=== PATIENT | female | born 1970 | race Two or more races ===

== ENCOUNTER → 2024-09-25 | Outpatient (CLI) | payer MEDICAID, SELFPAY ==
--- NOTE | 2024-09-25 09:00 | XR_ITS ---
Examination: MRI lumbar spine without contrast Date and time of exam: September 26, 2023, 0912 hours INDICATIONS: Low back pain radiating down the right leg with numbness in the toes 3 years Technique: Multiple MRI axial and sagittal sections lumbar spine. Sagittal T2-weighted images, TR 3500, TE 118 T1 weighted transverse sections, TR 688 T8.5, T2-weighted sagittal sections T1 weighted sagittal sections TR 621, TE 30 T2 axial sections, TR 4, 190, TE 84. Findings: Minimal anterolisthesis L4 on L5 No lumbar fracture Diffuse lumbar disc desiccation. Moderate disc narrowing L5-S1. L5-S1 4 mm right paracentral subarticular foraminal disc bulge L4-L5 no disc protrusion L3-L4 no disc protrusion L2-L3 no disc protrusion L1-L2 no disc protrusion IMPRESSION: L5-S1 4 mm right paracentral subarticular foraminal disc bulge
== END | disposition home or self-care (01) ==
LOC: SMRI 08:20
PROVIDERS: PCP Physician Assistant; Referring Provider Physician Assistant; Visit Provider Physician Assistant
DX: M51.370 Other intervertebral disc degeneration, lumbosacral region with discogenic back pain only (principal)
CPT/HCPCS: 72148

== ENCOUNTER → 2024-10-31 | Outpatient (CLI) | payer MEDICAID, SELFPAY ==
--- NOTE | 2024-10-31 11:15 | XR_ITS ---
Examination: Screening digital mammography, bilateral Computer aided detection 3-D breast Tomosynthesis, bilateral Date and time of exam: October 31, 2024 1112 hours No priors available Indication: Screening Technique: Nonmagnified MLO, CC views of the breasts to been obtained, reconstructed from 3-D Tomosynthesis images. R2 computer aided detection program utilized for evaluation of suspicious masses and/or abnormal calcifications. 3-D Tomosynthesis images obtained. Findings: Scattered areas of fibroglandular density. Suspicious for intracapsular left breast implant rupture Benign calcifications No suspicious masses Impression: BI-RADS category II: Benign Findings. Recommend 1 year follow-up mammogram. Suspicious for left breast intracapsular implant rupture, consider MRI bilateral breasts without contrast follow-up
== END | disposition home or self-care (01) ==
LOC: CDIM 10:58
PROVIDERS: Referring Provider Family Medicine; Visit Provider Family Medicine
DX: Z12.31 Encounter for screening mammogram for malignant neoplasm of breast (principal); R92.323 Mammographic fibroglandular density, bilateral breasts
CPT/HCPCS: 77063; 77067